=== PATIENT | female | born 1980 | race Caucasian/White ===

== ENCOUNTER 2017-11-15 08:21 | Inpatient (IN) | payer OTHER ==
[2017-11-15] VITALS (19 sets, daily range): BP systolic 95–125; BP diastolic 59–71
[~2017-11-15] VITALS: Ht 165.1 cm; Wt 71.4 kg
[~2017-11-15 08:21] MED LIST: ACYCLOVIR800 MG PO; BIRTH CONTROL PO; KEFLEX500 MG PO; MIRALAX255 GM PO; NAPROXEN250 MG PO; PYRIDIUM200 MG PO; ZYRTEC10 M1 PO
[2017-11-15] MEDS ORDERED: ACYCLOVIR400 MG PO (10:20)
[2017-11-15] MEDS ORDERED: PRENATAL TABLE1 EAC3 PO (10:21)
[2017-11-15 11:13] LABS: BASOPHIL (%) 0.3 % (0-1); EOSINOPHIL (%) 0.6 % (0-5); EOSINOPHIL COUNT 0.1 K/uL (0-0.3); HEMATOCRIT 34.6 % (36.0-46.0); HEMOGLOBIN 11.3 G/DL (11.9-15.5); IMMATURE GRANULOCYTE (%) 1.5 % (0.0-0.7); LYMPHOCYTE (%) 18.4 % (15-42); LYMPHOCYTE COUNT 1.8 K/uL (1.0-2.8); MCHC 32.7 G/DL (30.0-36.0); MCV 88.7 FL (83-99); MONOCYTE (%) 11.3 % (3-12); MONOCYTE COUNT 1.1 K/uL (0-0.8); NEUTROPHIL (%) 67.9 % (45-76); NEUTROPHIL COUNT 6.5 K/uL (1.8-6.4); PLATELET COUNT 212 K/uL (156-360); RBC DIS.WIDTH-CV 15.7 % (11.8-14.6); RBC DIS.WIDTH-SD 49.3 % (39-53); WHITE BLOOD COUNT 9.6 K/uL (4.1-10.2)
[2017-11-16] VITALS (25 sets, daily range): BP systolic 103–149; BP diastolic 55–77
[2017-11-17 07:46] LABS: BASOPHIL (%) 0.2 % (0-1); EOSINOPHIL (%) 0.5 % (0-5); EOSINOPHIL COUNT 0.1 K/uL (0-0.3); HEMATOCRIT 31.1 % (36.0-46.0); HEMOGLOBIN 10.2 G/DL (11.9-15.5); IMMATURE GRANULOCYTE (%) 0.8 % (0.0-0.7); LYMPHOCYTE (%) 17.9 % (15-42); LYMPHOCYTE COUNT 2.5 K/uL (1.0-2.8); MCH 29.1 PG (29.0-34.0); MCHC 32.8 G/DL (30.0-36.0); MCV 88.9 FL (83-99); MONOCYTE (%) 9.5 % (3-12); MONOCYTE COUNT 1.3 K/uL (0-0.8); NEUTROPHIL (%) 71.1 % (45-76); NEUTROPHIL COUNT 9.7 K/uL (1.8-6.4); PLATELET COUNT 197 K/uL (156-360); RBC DIS.WIDTH-SD 50.4 % (39-53); WHITE BLOOD COUNT 13.7 K/uL (4.1-10.2)
[2017-11-17 22:35] VITALS: BP 115/63
[2017-11-18] MEDS ORDERED: PUMP IN STYLE1 EACH MC (11:31)
== END 2017-11-18 14:30 | disposition home or self-care (01) | DRG 774 ==
LOC: LDRP-OP 08:21 → 2WEST 08:23 → LDRP-OP 21:52 → 2WEST 11-16 13:03 → LDRP-OP 12-21 09:52
PROVIDERS: Advanced Practice Midwife
PROC: 3E0P7VZ Introduction of Hormone into Female Reproductive, Via Natural or Artificial Opening (ICD-10-PCS; principal; 2017-11-15)
PROC: 00HU33Z Insertion of Infusion Device into Spinal Canal, Percutaneous Approach (ICD-10-PCS; 2017-11-16)
PROC: 3E0S3BZ Introduction of Anesthetic Agent into Epidural Space, Percutaneous Approach (ICD-10-PCS; 2017-11-16)
PROC: 10907ZC Drainage of Amniotic Fluid, Therapeutic from Products of Conception, Via Natural or Artificial Opening (ICD-10-PCS; 2017-11-16)
PROC: 10E0XZZ Delivery of Products of Conception, External Approach (ICD-10-PCS; 2017-11-16)
PROC: 0HQ9XZZ Repair Perineum Skin, External Approach (ICD-10-PCS; 2017-11-16)
DX: O70.0 First degree perineal laceration during delivery (principal); O98.313 Other infections with a predominantly sexual mode of transmission complicating pregnancy, third trimester; O22.43 Hemorrhoids in pregnancy, third trimester; Z37.0 Single live birth; Z3A.39 39 weeks gestation of pregnancy; A60.00 Herpesviral infection of urogenital system, unspecified; O99.824 Streptococcus B carrier state complicating childbirth; O99.344 Other mental disorders complicating childbirth; F32.9 Major depressive disorder, single episode, unspecified; F41.9 Anxiety disorder, unspecified; O99.343 Other mental disorders complicating pregnancy, third trimester
CPT/HCPCS: 85025; 88307; 90686; C1755; G0378; J2540; J2590; J7120